=== PATIENT | female | born 1955 | race Asian ===

== ENCOUNTER → 2016-10-07 | Outpatient (CLI) | payer BC, OTHER ==
--- NOTE | 2016-10-12 17:31 | Diagnostic Imaging Report ---
Bilateral screening mammogram. The current study was also evaluated with a Computer Aided Detection (CAD) system. INDICATION: Screening. No current complaints stated on the questionnaire. COMPARISON: 09/08/15 FINDINGS: The breasts are composed of heterogeneously dense parenchyma which may decrease mammographic sensitivity. Occasional punctate calcifications are seen. Allowing for technique and positional differences, no suspicious change is seen. IMPRESSION: No significant change. ACR BI-RADS Category 2: Benign findings. Result letter will be mailed to the patient. Note: At least 10% of breast cancer is not imaged by mammography. Dictated by: Dictated on workstation # [id number]
== END ==
LOC: RAD 07:19
PROVIDERS: ATTEND Family Medicine
DX: Z12.31 Encounter for screening mammogram for malignant neoplasm of breast (principal)
CPT/HCPCS: 77067

== ENCOUNTER → 2017-10-25 | Outpatient (CLI) | payer BC ==
--- NOTE | 2017-10-25 10:15 | Diagnostic Imaging Report ---
Indication: Right breast calcification. Patient presents for additional views. Correlation is made with screening mammogram from 10/13/2017. 2-D and 3-D unilateral right diagnostic mammography was performed with conventional 90 degree lateral view as well as magnification MLO views. The calcification noted in the far posterior right breast on screening study are again noted and appear to be benign. These appear to be coarse. No associated soft tissue mass is seen. No pleomorphism or branching is identified. Impression: BI-RADS 2 Benign calcifications in the right breast. The patient may return to routine. ACR BI-RADS Category 2: Benign findings. Result letter will be mailed to the patient. Note: At least 10% of breast cancer is not imaged by mammography. Dictated by: Dictated on workstation # [id number]
== END ==
LOC: RAD 09:04
PROVIDERS: ATTEND Family Medicine
DX: R92.1 Mammographic calcification found on diagnostic imaging of breast (principal)

== ENCOUNTER → 2018-10-19 | Outpatient (CLI) | payer BC ==
--- NOTE | 2018-10-19 17:15 | Diagnostic Imaging Report ---
INDICATION: Routine screening. COMPARISON: Prior mammograms from 10/13/2017 and 10/07/2016. EXAMINATION: 2D and 3D bilateral screening mammography was performed with CAD. The current study was also evaluated with a Computer Aided Detection (CAD) system. FINDINGS: Scattered fibroglandular densities are identified, bilaterally. Previously noted calcifications in the right breast are stable. Density in the right breast at posterior depth, superiorly located, appears more prominent on today's study. This is best seen on the MLO view. This is likely laterally located on the CC view. Additional views are recommended. The left breast is unremarkable. No malignant appearing microcalcifications are seen. Axillae are unremarkable. IMPRESSION: Right breast density. Additional views are recommended for further evaluation. ACR BI-RADS Category 0: Incomplete. (Needs additional imaging evaluation). Result letter will be mailed to the patient. Note: At least 10% of breast cancer is not imaged by mammography. Dictated by: Dictated on workstation # [id number]
== END ==
LOC: RAD 07:09
PROVIDERS: ATTEND Nurse Practitioner Family
DX: Z12.31 Encounter for screening mammogram for malignant neoplasm of breast (principal); R92.2 Inconclusive mammogram
CPT/HCPCS: 77067

== ENCOUNTER → 2018-10-26 | Outpatient (CLI) | payer BC ==
--- NOTE | 2018-10-26 17:54 | Diagnostic Imaging Report ---
INDICATION: Right breast density. Patient presents for additional views. COMPARISON: Correlation is made with recent screening study from 10/19/2018. TECHNIQUE: Unilateral right 2D and 3D diagnostic mammography was performed including spot compression CC, MLO, as well as conventional and 90 degree lateral view. The current study was also evaluated with a Computer Aided Detection (CAD) system. FINDINGS: The area of density noted in the posterior upper right breast on MLO view appears to represent superimposed tissue. No underlying mass is identified with additional views. No suspicious calcifications are seen. IMPRESSION: Additional views fail to demonstrate a discrete mass. The patient may return to routine annual screening mammography. ACR BI-RADS Category 2: Benign findings. Result letter will be mailed to the patient. Note: At least 10% of breast cancer is not imaged by mammography. Dictated by: Dictated on workstation # [id number]
== END ==
LOC: RAD 13:07
PROVIDERS: ATTEND Nurse Practitioner Family
DX: R92.2 Inconclusive mammogram (principal)

== ENCOUNTER → 2019-11-01 | Outpatient (CLI) | payer BC ==
--- NOTE | 2019-11-01 09:35 | Diagnostic Imaging Report ---
Indication: Routine screening. Comparison is made with prior mammograms from 10/19/2018 and 10/13/2017. 2-D and 3-D bilateral screening mammography was performed with CAD. Scattered fibroglandular densities are identified bilaterally. The parenchymal pattern is stable. No dominant mass or malignant appearing microcalcifications are seen. Axillae are unremarkable. IMPRESSION: BI-RADS Category 1 No mammographic features suspicious for malignancy are identified. Dictated by: Dictated on workstation # [id number]
== END ==
LOC: RAD 06:56
PROVIDERS: ATTEND Nurse Practitioner Family
DX: Z12.31 Encounter for screening mammogram for malignant neoplasm of breast (principal)
CPT/HCPCS: 77063; 77067

== ENCOUNTER 2020-05-04 15:39 | Inpatient (IN) | payer BC ==
[~2020-05-04] VITALS: Ht 150 cm; Wt 50.0 kg
[2020-05-04] MEDS ORDERED: LACTATED RINGERS 1,000 ML IV ONE (16:34)
[2020-05-04 16:44] LABS: ABG BASE EXCESS -0.2 MMOL/L (-2.5-2.5); ABG OXYGEN SATURATION 93 % (94-100); ABG PCO2 34 MMHG (35-45); ABG PH 7.46 (7.37-7.43); ABG PO2 65 MMHG (79-93)
[2020-05-04] MEDS ORDERED: ASPIRIN 81 MG CHEW (CHILDREN'S ASA) PO ONE (16:45)
[2020-05-04] MEDS ORDERED: ACETAMINOPHEN 500 MG TAB (TYLENOL) PO ONE (16:45)
[2020-05-04 16:49] LABS: ALLENS TEST YES-POS; INSPIRED O2 RA; PATIENT TEMP 100.1; VENTILATOR NO
--- NOTE | 2020-05-04 16:58 | ED Respiratory ---
General Stated Complaint: COVID19+ Source: patient Exam Limitations: no limitations History of Present Illness Date Seen by Provider: May 04, 2020 Time Seen by Provider: 16:18 Initial Comments The patient presents to ER by private conveyance with chief complaint of a COVID symptoms for the past week and a positive COVID test. She's having some shortness of air cough that restless or getting worse since yesterday. She's having some baseline fever. No history of lung disease COPD asthma etc. No history of heart disease. She's having substernal chest pain worse on coughing or movement. The symptoms started on 20 April and she was tested positive on the , 2 weeks ago. Allergies and Home Medications Allergies Coded Allergies: No Known Drug Allergies (Unverified , 05/04/20) Home Medications Pravastatin Sodium 20 Mg Tablet, 20 MG PO DAILY, (Reported) Patient Home Medication List Home Medication List Reviewed: Yes Review of Systems Review of Systems Constitutional: No chills, No diaphoresis EENTM: No ear discharge, No ear pain Respiratory: cough, short of breath Cardiovascular: chest pain; No Hx of Intervention, No palpitations, No syncope, No vascular heart diseas Gastrointestinal: No abdominal pain, No constipation, No nausea, No vomiting Genitourinary: No discharge, No dysuria Musculoskeletal: No back pain, No gout, No joint pain Skin: No pruritus, No rash Psychiatric/Neurological: Denies Headache, Denies Numbness All Other Systems Reviewed Negative Unless Noted: Yes Past Xpxjlsk-Dasyie-Adgndg Hx Patient Social History Alcohol Use: Denies Use Recreational Drug Use: No Smoking Status: Never a Smoker Physical Exam Vital Signs - First Documented 05/04/20 16:25 Temp 38.4 Pulse 89 Resp 20 B/P (MAP) 134/69 (90) Pulse Ox 98 O2 Delivery Nasal Cannula O2 Flow Rate 2.00 Capillary Refill : Height: '" Weight: lbs. oz. kg; BMI Method: General Appearance: WD/WN, moderate distress Eyes: Bilateral Eye Normal Inspection, Bilateral Eye PERRL, Bilateral Eye EOMI HEENT: PERRL/EOMI, normal ENT inspection, TMs normal, pharynx normal Neck: non-tender, full range of motion, supple, normal inspection Respiratory: chest non-tender, lungs clear, normal breath sounds, respiratory distress (93-94% RA) Cardiovascular: normal peripheral pulses, regular rate, rhythm Gastrointestinal: normal bowel sounds, non tender, soft Extremities: normal range of motion, non-tender, normal inspection, normal capillary refill Neurologic/Psychiatric: no motor/sensory deficits, alert, oriented x 3, other (anxious affect) Skin: normal color, warm/dry Progress/Results/Core Measures Suspected Sepsis SIRS Temperature: Pulse: Respiratory Rate: Laboratory Tests 05/04/20 16:50: White Blood Count 12.0H Blood Pressure / Mean: Laboratory Tests 05/04/20 16:50: Creatinine 0.82, INR Comment 1.1, Platelet Count 195, Total Bilirubin 0.6 Results/Orders Lab Results Laboratory Tests Test 05/04/20 16:36 05/04/20 16:50 Range/Units Blood Gas Puncture Site RR Blood Gas Patient Temperature 100.1 Arterial Blood pH 7.46 H 7.37-7.43 Arterial Blood Partial Pressure CO2 34 L 35-45 MMHG Arterial Blood Partial Pressure O2 65 L 79-93 MMHG Arterial Blood HCO3 23 23-27 MMOL/L Arterial Blood Total CO2 24.0 21.0-31.0 MMOL/L Arterial Blood Oxygen Saturation 93 L 94-100 % Arterial Blood Base Excess -0.2 -2.5-2.5 MMOL/L Oscar Test YES-POS Blood Gas Ventilator Setting NO Blood Gas Inspired Oxygen RA White Blood Count 12.0 H 4.3-11.0 10^3/uL Red Blood Count 4.28 3.80-5.11 10^6/uL Hemoglobin 12.7 11.5-16.0 g/dL Hematocrit 39 35-52 % Mean Corpuscular Volume 90 80-99 fL Mean Corpuscular Hemoglobin 30 25-34 pg Mean Corpuscular Hemoglobin Concent 33 32-36 g/dL Red Cell Distribution Width 12.4 10.0-14.5 % Platelet Count 195 130-400 10^3/uL Mean Platelet Volume 9.3 9.0-12.2 fL Immature Granulocyte % (Auto) 1 % Neutrophils (%) (Auto) 85 H 42-75 % Lymphocytes (%) (Auto) 8 L 12-44 % Monocytes (%) (Auto) 6 0-12 % Eosinophils (%) (Auto) 0 0-10 % Basophils (%) (Auto) 0 0-10 % Neutrophils # (Auto) 10.2 H 1.8-7.8 10^3/uL Lymphocytes # (Auto) 0.9 L 1.0-4.0 10^3/uL Monocytes # (Auto) 0.7 0.0-1.0 10^3/uL Eosinophils # (Auto) 0.0 0.0-0.3 10^3/uL Basophils # (Auto) 0.0 0.0-0.1 10^3/uL Immature Granulocyte # (Auto) 0.1 0.0-0.1 10^3/uL Neutrophils % (Manual) 89 % Lymphocytes % (Manual) 3 % Monocytes % (Manual) 7 % Band Neutrophils 1 % Blood Morphology Comment NORMAL Prothrombin Time 14.1 12.2-14.7 SEC INR Comment 1.1 0.8-1.4 Activated Partial Thromboplast Time 33 24-35 SEC D-Dimer 0.32 0.00-0.49 UG/ML Sodium Level 139 135-145 MMOL/L Potassium Level 3.9 3.6-5.0 MMOL/L Chloride Level 103 98-107 MMOL/L Carbon Dioxide Level 24 21-32 MMOL/L Anion Gap 12 5-14 MMOL/L Blood Urea Nitrogen 15 7-18 MG/DL Creatinine 0.82 0.60-1.30 MG/DL Estimat Glomerular Filtration Rate > 60 BUN/Creatinine Ratio 18 Glucose Level 144 H 70-105 MG/DL Calcium Level 8.5 8.5-10.1 MG/DL Corrected Calcium 8.7 8.5-10.1 MG/DL Magnesium Level 1.9 1.6-2.4 MG/DL Total Bilirubin 0.6 0.1-1.0 MG/DL Aspartate Amino Transf (AST/SGOT) 38 H 5-34 U/L Alanine Aminotransferase (ALT/SGPT) 44 0-55 U/L Alkaline Phosphatase 87 40-136 U/L Myoglobin 62.4 10.0-92.0 NG/ML Troponin I < 0.028 <0.028 NG/ML C-Reactive Protein High Sensitivity 20.19 H 0.00-0.50 MG/DL B-Type Natriuretic Peptide 14.3 <100.0 PG/ML Total Protein 6.8 6.4-8.2 GM/DL Albumin 3.7 3.2-4.5 GM/DL Lipase 24 8-78 U/L Procalcitonin 0.10 H <0.10 NG/ML My Orders Orders - PEDRO FORD Arterial Blood Gas (05/04/20 16:34) Cbc With Automated Diff (05/04/20 16:34) Magnesium (05/04/20 16:34) Chest 1 View, Ap/Pa Only (05/04/20 16:34) Ekg Tracing (05/04/20 16:34) Comprehensive Metabolic Panel (05/04/20 16:34) Myoglobin Serum (05/04/20 16:34) Protime With Inr (05/04/20 16:34) Partial Thromboplastin Time (05/04/20 16:34) O2 (05/04/20 16:34) Monitor-Rhythm Ecg Trace Only (05/04/20 16:34) Lipid Panel (05/05/20 06:00) Ed Iv/Invasive Line Start (05/04/20 16:34) Lipase (05/04/20 16:34) BNP (05/04/20 16:34) Fibrin Degradation Products (05/04/20 16:34) Troponin I (05/04/20 16:34) Aspirin Chewable Tablet (Baby Aspirin Ch (05/04/20 16:45) Acetaminophen Tablet (Tylenol Tablet) (05/04/20 16:45) Ed Iv/Invasive Line Start (05/04/20 16:34) Lactated Ringers (Lr 1000 Ml Iv Solution (05/04/20 16:34) Manual Differential (05/04/20 16:50) Dexamethasone Injection (Decadron Injec (05/04/20 17:45) Hs C Reactive Protein (05/04/20 17:56) Procalcitonin (Pct) (05/04/20 17:56) Medications Given in ED Current Medications Medications Dose Ordered Sig/Cindy Route Start Time Stop Time Status Last Admin Dose Admin Acetaminophen 1,000 mg ONCE ONCE PO 05/04/20 16:45 05/04/20 16:46 DC 05/04/20 17:12 1,000 MG Aspirin 324 mg ONCE ONCE PO 05/04/20 16:45 05/04/20 16:46 DC 05/04/20 17:12 324 MG Dexamethasone Sodium Phosphate 6 mg ONCE ONCE IV 05/04/20 17:45 05/04/20 17:46 DC 05/04/20 17:50 6 MG Lactated Ringer's 1,000 ml @ 0 mls/hr Q0M ONCE IV 05/04/20 16:34 05/04/20 16:37 DC 05/04/20 17:12 1,000 MLS/HR Vital Signs/I&O 05/04/20 05/04/20 16:25 17:00 Temp 38.4 Pulse 89 Resp 20 B/P (MAP) 134/69 (90) Pulse Ox 98 98 O2 Delivery Nasal Cannula Nasal Cannula O2 Flow Rate 2.00 2.00 Capillary Refill : Progress Note : Time: 16:57 Progress Note Patient does have some mild respiratory distress, increased worker breathing, increased tachypnea and oxygen saturations barely staying at 94%. Plan to give her some aspirin and get a d-dimer as well as EKG, troponin, ABG and a radiograph of the chest. 1 L of lactated Ringer's. ECG Initial ECG Impression Date: May 04, 2020 Initial ECG Impression Time: 16:27 Initial ECG Rate: 123 Initial ECG Rhythm: S.Tach Initial ECG Intervals: Normal Initial ECG Impression: Normal Comment Sinus tachycardia without clinically relevant ST changes. Diagnostic Imaging Diagonstic Imaging: Xray Plain Films/CT/US/NM/MRI: chest Comments NAME: ALFREDO BULLOCK MED REC#: [id number] PT STATUS: REG ER : 1955 PHYSICIAN: PEDRO FORD MD ADMIT DATE: 05/04/20/ER Draft Date of Exam:05/04/20 CHEST 1 VIEW, AP/PA ONLY EXAMINATION: Chest 1 view HISTORY: Chest pain, Covid positive. COMPARISON: None. FINDINGS: Heart size and pulmonary vasculature are normal. There are bilateral mid and lower lung patchy interstitial and airspace opacities. No pleural effusion or pneumothorax. The osseous structures are intact. IMPRESSION: 1. Patchy interstitial and airspace opacities within the mid and lower lungs compatible with pneumonia and history of Covid. Dictated on workstation # [id number] Dict: 05/04/201725 Trans: 05/04/201727 [facility] [id number] Interpreted by: SREE ZAIDI DO Electronically signed by: Reviewed: Reviewed by Me, Discussed w/Radiologist Departure Communication (Admissions) Time/Spoke to Admitting y: 17:15 Discussed the case with Dr. Del Rosario and she agrees to admit the patient on oxygen, Decadron. Impression Primary Impression: COVID-19 Additional Impressions: Acute respiratory failure due to COVID-19 Acute respiratory failure with hypoxia Disposition: ADMITTED INPATIENT Condition: Stable Admissions Decision to Admit Reason: Admit from ER (General) Decision to Admit/Date: May 04, 2020 Time/Decision to Admit Time: 16:30 Departure-Patient Inst. Referrals: ANDRES MENDIETA MD (PCP/Family) Primary Care Physician PEDRO FORD May 04, 2020 16:58
[2020-05-04 17:10] LABS: BASOPHILS % (AUTO) 0 % (0-10); EOSINOPHILS % (AUTO) 0 % (0-10); HEMATOCRIT 39 % (35-52); HEMOGLOBIN 12.7 g/dL (11.5-16.0); LYMPHOCYTES # (AUTO) 0.9 10^3/uL (1.0-4.0); LYMPHOCYTES % (AUTO) 8 % (12-44); MEAN CORPUSCULAR HEMOGLOBIN 30 pg (25-34); MEAN CORPUSCULAR HGB CONC 33 g/dL (32-36); MEAN CORPUSCULAR VOLUME 90 fL (80-99); MEAN PLATELET VOLUME 9.3 fL (9.0-12.2); MONOCYTES # (AUTO) 0.7 10^3/uL (0.0-1.0); MONOCYTES % (AUTO) 6 % (0-12); NEUTROPHILS # (AUTO) 10.2 10^3/uL (1.8-7.8); NEUTROPHILS % (AUTO) 85 % (42-75); PLATELET COUNT 195 10^3/uL (130-400)
[2020-05-04 17:11] LABS: ALBUMIN 3.7 GM/DL (3.2-4.5)
[2020-05-04 17:12] LABS: CHLORIDE 103 MMOL/L (98-107); INR 1.1 (0.8-1.4); POTASSIUM 3.9 MMOL/L (3.6-5.0); PROTHROMBIN TIME PATIENT 14.1 SEC (12.2-14.7); SODIUM 139 MMOL/L (135-145)
[2020-05-04 17:13] LABS: CALCIUM 8.5 MG/DL (8.5-10.1)
[2020-05-04 17:14] LABS: GLUCOSE 144 MG/DL (70-105); TOTAL PROTEIN 6.8 GM/DL (6.4-8.2)
[2020-05-04 17:15] LABS: CARBON DIOXIDE 24 MMOL/L (21-32)
[2020-05-04 17:16] LABS: BILIRUBIN,TOTAL 0.6 MG/DL (0.1-1.0)
[2020-05-04 17:17] LABS: ALKALINE PHOSPHATASE 87 U/L (40-136)
[2020-05-04 17:18] LABS: CREATININE SERUM 0.82 MG/DL (0.60-1.30); GFR ESTIMATED > 60
[2020-05-04 17:19] LABS: BUN/CREATININE RATIO 18
[2020-05-04 17:21] LABS: ALANINE AMINOTRANSFERASE 44 U/L (0-55); MAGNESIUM 1.9 MG/DL (1.6-2.4)
[2020-05-04 17:22] LABS: LIPASE 24 U/L (8-78)
--- NOTE | 2020-05-04 17:29 | Diagnostic Imaging Report ---
EXAMINATION: Chest 1 view HISTORY: Chest pain, Covid positive. COMPARISON: None. FINDINGS: Heart size and pulmonary vasculature are normal. There are bilateral mid and lower lung patchy interstitial and airspace opacities. No pleural effusion or pneumothorax. The osseous structures are intact. IMPRESSION: 1. Patchy interstitial and airspace opacities within the mid and lower lungs compatible with pneumonia and history of Covid. Dictated by: Dictated on workstation # [id number]
[2020-05-04 17:49] LABS: BAND NEUTROPHILS 1 %; LYMPHOCYTES % (MANUAL) 3 %; MONOCYTES % (MANUAL) 7 %; NEUTROPHILS % (MANUAL) 89 %; RBC MORPH NORMAL
[2020-05-04] MEDS ORDERED: PRAV20TA3 PO (18:06)
--- NOTE | 2020-05-04 18:45 | NUR ---
Pt admitted to room 430 from ED. Pt is A/o x 4, able to make needs known. Pt was oriented to room. Call light within reach.
[2020-05-04 18:57] VITALS: BP 136/63
[2020-05-04] MEDS ORDERED: ONDANSETRON 4 MG/2 ML (SDV) Z0FRAN IV PRN (19:00)
[2020-05-04] MEDS ORDERED: ACETAMINOPHEN 325 MG TABLET PO PRN (19:00)
[2020-05-04] MEDS ORDERED: IBUPROFEN 600 MG (MOTRIN) TAB PO PRN (19:00)
[2020-05-04] MEDS: LACTATED RINGERS 1,000 ML IV SCH (19:13)
[2020-05-04] MEDS ORDERED: BENZONATATE 100 MG (TESSALON) CAPSULE PO PRN (19:15)
[2020-05-04] MEDS ORDERED: CATHETER FLUSH 10 ML SYR IV PRN (19:15)
[2020-05-04] MEDS ORDERED: FLU QUADRIvalent (3YOA+) 60 mcg/0.5 ml 2020-21 (AFLURIA) IM ONE (19:30)
[2020-05-04 19:50] VITALS: BP 136/63
[2020-05-04 20:54] VITALS: BP 134/69
[2020-05-04] MEDS ORDERED: RT-ALBUTEROL INHALER HFA (VENTOLIN HFA) 18 GM IH PRN (21:30)
[2020-05-04] MEDS: RT-ALBUTEROL INHALER HFA (VENTOLIN HFA) 18 GM IH SCH (21:34)
[2020-05-05] VITALS (9 sets, daily range): BP systolic 101–142; BP diastolic 50–80
[2020-05-05] MEDS: RT-ALBUTEROL INHALER HFA (VENTOLIN HFA) 18 GM IH SCH ×6 (02:45→20:04)
[2020-05-05 06:06] LABS: BASOPHILS % (AUTO) 0 % (0-10); EOSINOPHILS % (AUTO) 0 % (0-10); HEMATOCRIT 38 % (35-52); HEMOGLOBIN 12.3 g/dL (11.5-16.0); LYMPHOCYTES # (AUTO) 0.4 10^3/uL (1.0-4.0); LYMPHOCYTES % (AUTO) 8 % (12-44); MEAN CORPUSCULAR HEMOGLOBIN 30 pg (25-34); MEAN CORPUSCULAR HGB CONC 32 g/dL (32-36); MEAN CORPUSCULAR VOLUME 93 fL (80-99); MEAN PLATELET VOLUME 9.6 fL (9.0-12.2); MONOCYTES # (AUTO) 0.2 10^3/uL (0.0-1.0); MONOCYTES % (AUTO) 4 % (0-12); NEUTROPHILS # (AUTO) 4.7 10^3/uL (1.8-7.8); NEUTROPHILS % (AUTO) 87 % (42-75); PLATELET COUNT 196 10^3/uL (130-400); WHITE BLOOD COUNT 5.4 10^3/uL (4.3-11.0)
[2020-05-05 06:20] LABS: ALBUMIN 3.3 GM/DL (3.2-4.5); CHLORIDE 109 MMOL/L (98-107); POTASSIUM 4.2 MMOL/L (3.6-5.0); SODIUM 140 MMOL/L (135-145)
[2020-05-05 06:21] LABS: CALCIUM 8.5 MG/DL (8.5-10.1)
[2020-05-05 06:22] LABS: TRIGLYCERIDES 108 MG/DL (<150); VLDL CHOLESTEROL 22 MG/DL (5-40)
[2020-05-05 06:23] LABS: GLUCOSE 282 MG/DL (70-105); TOTAL PROTEIN 6.4 GM/DL (6.4-8.2)
[2020-05-05 06:24] LABS: CARBON DIOXIDE 21 MMOL/L (21-32)
[2020-05-05 06:25] LABS: BILIRUBIN,TOTAL 0.4 MG/DL (0.1-1.0)
[2020-05-05 06:26] LABS: ALKALINE PHOSPHATASE 88 U/L (40-136); CREATININE SERUM 0.76 MG/DL (0.60-1.30); GFR ESTIMATED > 60
[2020-05-05 06:27] LABS: CHOLESTEROL 202 MG/DL (< 200)
[2020-05-05 06:28] LABS: BUN/CREATININE RATIO 18
[2020-05-05 06:29] LABS: ALANINE AMINOTRANSFERASE 44 U/L (0-55); HDL CHOLESTEROL 46 MG/DL (40-60)
--- NOTE | 2020-05-05 08:40 | Diagnostic Imaging Report ---
INDICATION: Hypoxia. Time of exam: 4:22 AM Correlation is made with prior chest one day earlier. Patchy infiltrates mid and lower lung butterfield persist. There is no effusion or pneumothorax. The heart size is stable. IMPRESSION: Continued patchy bilateral pulmonary infiltrates. Dictated by: Dictated on workstation # [id number]
[2020-05-05] MEDS: LACTATED RINGERS 1,000 ML IV SCH ×2 (08:59→20:52)
[2020-05-05] MEDS: guaiFENesin/DM (ROBITUSSIN DM) 10 ML UDC PO PRN ×2 (11:00→17:00)
--- NOTE | 2020-05-05 11:48 | History & Physical-Hospitalist ---
History of Present Illness HPI/Chief Complaint Pt is a 64yoAAF with a PMH of HLD who presented to the ER due to persistent cough with known COVID19. She stated her symptoms started on 04/20 and she was diagnosed on 04/22. She did ok at home but lost her taste and continued to cough. She was taken out of isolation and returned to work yesterday but continued to cough severely so her boss instructed her to go to the ER for evaluation. She was found to be hypoxic on arrival and admitted for further management. This morning she states she feels better but still has an annoying cough. Source: patient Date Seen 05/05/20 Time Seen by a Provider: 11:46 Attending Physician Susanne Del Rosario MD PCP Marlene Mills MD Referring Physician Date of Admission May 04, 2020 at 18:00 Home Medications & Allergies Home Medications Reviewed patient Home Medication Reconciliation performed by pharmacy medication reconciliations sleep technician and/or nursing. Patients Allergies have been reviewed. Allergies Allergies Coded Allergies No Known Drug Allergies (Hsuakkdvrs02/30/20) Past Czoznwc-Twrjgu-Frzccb Hx Past Med/Social Hx: Reviewed Nursing Past Med/Soc Hx Patient Social History Marrital Status: Employed/Student: employed Alcohol Use: Denies Use Recreational Drug Use: No Smoking Status: Never a Smoker Recent Foreign Travel: No Contact w/other who traveled: No Recent Hopitalizations: No Recent Infectious Disease Expo: No Seasonal Allergies Seasonal Allergies: No Past Medical History Surgeries: Hysterectomy Female Reproductive Disorders: Endometriosis Genitourinary: Kidney Stones Family History Reviewed Nursing Family Hx Patient reports no known family medical history. No Pertinent Family Hx Review of Systems Constitutional: fever, malaise, weakness Respiratory: cough; No phlegm; short of breath Cardiovascular: No chest pain, No edema, No palpitations Gastrointestinal: No abdominal pain, No constipation, No diarrhea; loss of appetite Genitourinary: no symptoms reported Musculoskeletal: no symptoms reported Skin: no symptoms reported Psychiatric/Neurological: No Symptoms Reported Physical Exam Physical Exam Vital Signs Vital Signs - First Documented 05/04/20 05/04/20 16:25 20:54 Temp 38.4 Pulse 89 Resp 20 B/P (MAP) 134/69 (90) Pulse Ox 98 O2 Delivery Nasal Cannula O2 Flow Rate 2.00 FiO2 28 Capillary Refill : Less Than 3 Seconds Height, Weight, BMI Height: '" Weight: lbs. oz. kg; 22.22 BMI Method: General Appearance: No Apparent Distress, WD/WN, Thin HEENT: PERRL/EOMI, Moist Mucous Membranes Neck: Normal Inspection, Supple Respiratory: Lungs Clear, No Accessory Muscle Use, No Respiratory Distress, Other (coughing significantly during exam) Cardiovascular: Regular Rate, Rhythm, No Murmur Gastrointestinal: Normal Bowel Sounds, Non Tender, Soft Extremity: Normal Capillary Refill, No Calf Tenderness, No Pedal Edema Neurologic/Psychiatric: Alert, Oriented x3, Normal Mood/Affect Results Results/Procedures Labs Laboratory Tests 05/05/20 05:15 Patient resulted labs reviewed. Imaging: Reviewed Imaging Report Imaging [facility] [place] NAME: ALFREDO BULLOCK [facility] REC#: [id number] PT STATUS: ADM IN : 1955 PHYSICIAN: PEDRO FORD MD ADMIT DATE: 05/04/20 Signed Date of Exam:05/04/20 CHEST 1 VIEW, AP/PA ONLY EXAMINATION: Chest 1 view HISTORY: Chest pain, Covid positive. COMPARISON: None. FINDINGS: Heart size and pulmonary vasculature are normal. There are bilateral mid and lower lung patchy interstitial and airspace opacities. No pleural effusion or pneumothorax. The osseous structures are intact. IMPRESSION: 1. Patchy interstitial and airspace opacities within the mid and lower lungs compatible with pneumonia and history of Covid. Dictated by: Dictated on workstation # [id number] Dict: 05/04/201725 Trans: 05/04/201841 [facility] [id number] Interpreted by: SREE ZAIDI DO Electronically signed by: SREE ZAIDI DO 05/04/201841 Assessment/Plan Admission Diagnosis Acute hypoxic respiratory failure from COVID19 Admission Status: Inpatient Order (span 2 midnights) Reason for Inpatient Admission: see below Assessment and Plan Acute hypoxic respiratory failure from COVID19 Outside window for remdesivir Consent to convalescent plasma, EUA status explained to patient Contineu decadron Tessalon and robitussin for cough Lovenox MAT protocol DVt ppx:Lovenox Diagnosis/Problems Diagnosis/Problems (1) Acute respiratory failure due to COVID-19 Status: Acute (2) Acute respiratory failure with hypoxia Status: Acute Clinical Quality Measures DVT/VTE Risk/Contraindication: Risk Factor Score Per Nursin RFS Level Per Nursing on Admit: 3=High SUSANNE DEL ROSARIO MD May 05, 2020 11:48
[2020-05-05] MEDS: ENOXAPARIN 40 MG/0.4 ML (LOVENOX) SYR SQ SCH (13:34)
--- NOTE | 2020-05-05 14:34 | NUR ---
Initial visit: Pt is Faith. Local Bulk Driver engaged in rapport building and offered compassionate presence. Pt shared about her visit to the ER and stated she felt it comforting to share her story and know that Chaplains were available for support.
[2020-05-06] MEDS: RT-ALBUTEROL INHALER HFA (VENTOLIN HFA) 18 GM IH SCH ×5 (02:51→22:31)
[2020-05-06 04:24] VITALS: BP 109/60
[2020-05-06] MEDS: guaiFENesin/DM (ROBITUSSIN DM) 10 ML UDC PO PRN ×2 (04:40→20:29)
[2020-05-06 08:00] VITALS: BP 117/53
[2020-05-06] MEDS: LACTATED RINGERS 1,000 ML IV SCH (09:09)
[2020-05-06] MEDS ORDERED: OMEG100032 PO (09:43)
[2020-05-06] MEDS ORDERED: ASCO-262 PO (09:43)
[2020-05-06] MEDS ORDERED: ZINC50TA58 PO (09:43)
[2020-05-06] MEDS ORDERED: FLUT12AE6 INH (09:43)
[2020-05-06] MEDS ORDERED: CHOL500050 PO (09:43)
[2020-05-06] MEDS ORDERED: ASPI-1238 PO (09:43)
[2020-05-06] MEDS ORDERED: GLUC1TAB20 PO (09:43)
--- NOTE | 2020-05-06 09:49 | NUR ---
SPOKE WITH THE PT (CALLED HER CELL) AND WENT THRU THE EXT MED HISTORY TO COMPLETE THE MED REC PT RECENTLY FILLED A Z-CURT AND DEXAMETHASONE BUT SHE LET ME KNOW SHE WAS FINISHED WITH THOSE BOTH THERAPIES PRIOR TO BEING ADMITTED BREZTRI INHALER IS ON THE EXT MED HISTORY HOWEVER PT HAS NOT PICKED THIS UP FROM THE PHARMACY OTC MEDS: VIT D VIT C ZINC ASPIRIN 81MG FISH OIL GLUCOSAMINE CHONDROITIN
[2020-05-06] MEDS: ENOXAPARIN 40 MG/0.4 ML (LOVENOX) SYR SQ SCH (11:26)
[2020-05-06 12:00] VITALS: BP 132/63
--- NOTE | 2020-05-06 14:32 | Progress Note - Hospitalist ---
Subjective HPI/CC On Admission Date Seen by Provider: May 06, 2020 Time Seen by Provider: 14:30 Pt is a 64yoAAF with a PMH of HLD who presented to the ER due to persistent cough with known COVID19. She stated her symptoms started on 04/20 and she was diagnosed on 04/22. She did ok at home but lost her taste and continued to cough. She was taken out of isolation and returned to work yesterday but continued to cough severely so her boss instructed her to go to the ER for evaluation. She was found to be hypoxic on arrival and admitted for further management. This morning she states she feels better but still has an annoying cough. Subjective/Events-last exam Pt reports feeling better today. Cough slightly improved. Discussed likely prolonged course with cough. She inquired about receiving another dose of convalescent plasma but I informed her it is a one time treatment. Objective Exam Vital Signs Vital Signs Date Time Temp Pulse Resp B/P (MAP) Pulse Ox O2 Delivery O2 Flow Rate FiO2 05/06/20 12:00 35.8 67 18 132/63 (86) 95 Nasal Cannula 2.00 05/04/20 20:54 28 Capillary Refill : Less Than 3 Seconds General Appearance: No Apparent Distress, WD/WN Respiratory: Lungs Clear, No Respiratory Distress, Other (coughs with deep inspiration) Cardiovascular: Regular Rate, Rhythm, No Murmur Neurologic/Psychiatric: Alert, Oriented x3 Results/Procedures Lab Patient resulted labs reviewed. Assessment/Plan Assessment and Plan Assess & Plan/Chief Complaint Acute hypoxic respiratory failure from COVID19 Outside window for remdesivir S/p 1 unit convalescent plasma Continue decadron Tessalon and robitussin for cough Lovenox MAT protocol Hopeful to DC home tomorrow if she continues to do well, currently off oxygen DVt ppx:Lovenox Diagnosis/Problems Diagnosis/Problems (1) Acute respiratory failure due to COVID-19 Status: Acute (2) Acute respiratory failure with hypoxia Status: Acute Clinical Quality Measures DVT/VTE Risk/Contraindication: Risk Factor Score Per Nursin RFS Level Per Nursing on Admit: 3=High SUSANNE MORSE MD May 06, 2020 14:32
[2020-05-06 15:49] VITALS: BP 121/62
[2020-05-06 19:49] VITALS: BP 127/62
[2020-05-07 00:04] VITALS: BP 133/64
[2020-05-07] MEDS: LACTATED RINGERS 1,000 ML IV SCH (01:15)
[2020-05-07] MEDS: guaiFENesin/DM (ROBITUSSIN DM) 10 ML UDC PO PRN ×2 (06:00→13:31)
[2020-05-07 08:00] VITALS: BP 102/50
[2020-05-07] MEDS: RT-ALBUTEROL INHALER HFA (VENTOLIN HFA) 18 GM IH SCH ×3 (08:32→15:41)
--- NOTE | 2020-05-07 10:49 | NUR ---
pt did not require O2 for her walk study. Addendum: 05/07/20 at 1049 by SUPRIYA LOVE RT Amended: Links added.
--- NOTE | 2020-05-07 11:53 | Discharge Inst-Simple/Standard ---
Discharge Inst-Standard Patient Instructions/Follow Up Plan of Care/Instructions/FU: Please continue to take your medications as written. Please follow up with your primary care doctor to follow up this hospital stay. Activity as Tolerated: Yes Discharge Diet: No Restrictions Return to The Hospital For: Chest pain, fevers, shortness of breath, abdominal pain, confusion, if you feel you are getting worse. SUSANNE MORSE MD May 07, 2020 11:53
[2020-05-07] MEDS ORDERED: BENZ100C18 PO (11:56)
--- NOTE | 2020-05-07 11:57 | Discharge Summary ---
Diagnosis/Chief Complaint Date of Admission May 04, 2020 at 18:00 Date of Discharge Discharge Date: May 06, 2020 Admission Diagnosis Acute hypoxic respiratory failure from COVID19 Primary Care Marlene Mills MD Discharge Diagnosis (1) Acute respiratory failure due to COVID-19 Status: Acute (2) Acute respiratory failure with hypoxia Status: Acute Discharge Summary Discharge Physical Exam Allergies: Coded Allergies: No Known Drug Allergies (Unverified , 05/04/20) Vitals & I&Os Vital Signs Date Time Temp Pulse Resp B/P (MAP) Pulse Ox O2 Delivery O2 Flow Rate FiO2 05/07/20 10:45 83 90 05/07/20 10:44 Room Air 05/07/20 08:00 35.8 18 102/50 (67) 05/06/20 12:00 2.00 05/04/20 20:54 28 Hospital Course Labs (last 24 hrs) Patient resulted labs reviewed. Imaging: Reviewed Imaging Report Discharge Home Medications: Active Scripts Active Tessalon Perles (Benzonatate) 100 Mg Capsule 100 Mg PO TID PRN Reported Advair Hfa 230-21 Mcg Inhaler (Fluticasone/Salmeterol) 12 Gm Hfa.aer.ad 2 Puff INH Q12H Aspirin EC (Aspirin) 81 Mg Tablet.dr 81 Mg PO DAILY Zinc 50 Mg Tablet 50 Mg PO DAILY Vitamin C (Ascorbate Calcium) 500 Mg Tablet 500 Mg PO DAILY Fish Oil 1,000 mg Softgel ([place]-3/Dha/Epa/Fish Oil) 1,000 Mg Capsule 1,000 Mg PO DAILY Glucosamine Chondroitin Tab (Gluc Wynn/Chondro Wynn A/Vit C/Mn) 1 Each Tablet 1 Each PO DAILY Vitamin D3 (Cholecalciferol (Vitamin D3)) 125 Mcg Capsule 125 Mcg PO DAILY Pravastatin Sodium 20 Mg Tablet 20 Mg PO HS Instructions to patient/family Please see electronic discharge instructions given to patient. Clinical Quality Measures DVT/VTE Risk/Contraindication: Risk Factor Score Per Nursin RFS Level Per Nursing on Admit: 3=High SUSANNE MORSE MD May 07, 2020 11:57
[2020-05-07 12:00] VITALS: BP 126/61
[2020-05-07] MEDS: ENOXAPARIN 40 MG/0.4 ML (LOVENOX) SYR SQ SCH (13:31)
[2020-05-07 15:10] VITALS: BP 126/61
== END 2020-05-07 15:10 | disposition home or self-care (01) | DRG 177 ==
LOC: EDUNIT# 15:39 → ER 15:41 → 4TH 18:00 → EDLOC 18:00
PROVIDERS: ADMIT Family Medicine; ATTEND Family Medicine
PROC: XW13325 Transfusion of Convalescent Plasma (Nonautologous) into Peripheral Vein, Percutaneous Approach, New Technology Group 5 (ICD-10-PCS; principal; 2020-05-05)
DX: U07.1 COVID-19 (principal); J96.01 Acute respiratory failure with hypoxia; E78.5 Hyperlipidemia, unspecified; Z73.0 Burn-out; Z23 Encounter for immunization
CPT/HCPCS: 36415; 71045; 80053; 80061; 82805; 83690; 83735; 83874; 83880; 84145; 84484; 85007; 85025; 85027; 85379; 85610; 85730; 86141; 86850; 86900; 86901; 90686; 93005; 93041; 94640; 94760; 94761

== ENCOUNTER → 2020-06-16 | Outpatient (CLI) | payer BC ==
[~2020-06-16] MED LIST: ASCO-262 PO; ASPI-1238 PO; BENZ100C18 PO; CATHETER FLUSH 10 ML SYR IV PRN; CHOL500050 PO; FLUT12AE6 INH; GLUC1TAB20 PO; HOLD METFORMIN - RECEIVED CONTRAST 20 ML VIAL IV SCH; IOHEXOL 350 MG/ML 100 ML (OMNIPAQUE 350) VIAL IV ONE; NS 100 ML (IVPB) BAG IV ONE; OMEG100032 PO; PRAV20TA3 PO; ZINC50TA58 PO
[2020-06-16 12:51] LABS: BUN/CREATININE RATIO 16; GFR ESTIMATED > 60
--- NOTE | 2020-06-16 13:32 | Diagnostic Imaging Report ---
PROCEDURE: CT chest with contrast only. TECHNIQUE: Multiple contiguous axial images were obtained through the chest after administration of intravenous contrast. Auto Exposure Controls were utilized during the CT exam to meet ALARA standards for radiation dose reduction. INDICATION: Cough, dyspnea. COMPARISON: Radiographs dated 05/05/2020. FINDINGS: Small 0.5 cm and smaller bilateral thyroid nodules are present. No significant adenopathy within chest. Scattered vascular calcifications, including within the coronary arteries. No aneurysmal dilatation of thoracic aorta. The heart is within normal limits in size. No pericardial effusion. No pleural effusion. Patchy groundglass and subpleural reticular opacities are identified throughout the lungs. These are greatest within the lower lobes. These appear improved since the prior radiographs of the chest. The trachea is patent. No significant filling defect within the main pulmonary arteries. The visualized upper abdomen is unremarkable. No acute osseous abnormality. IMPRESSION: Improved though persistent bilateral groundglass and reticular pulmonary opacities, favored to relate to an improving infectious infiltrate. Recommend radiographic follow-up in 1-2 months to reevaluate. Dictated by: Dictated on workstation # [id number]
== END ==
LOC: RAD 12:12
PROVIDERS: ATTEND Family Medicine
DX: U07.1 COVID-19 (principal); R91.8 Other nonspecific abnormal finding of lung field
CPT/HCPCS: 36415; 71260; 82565; 84520

== ENCOUNTER → 2020-08-06 | Outpatient (CLI) | payer BC ==
[2020-08-06 14:25] LABS: ALBUMIN 4.6 GM/DL (3.2-4.5); CHLORIDE 108 MMOL/L (98-107); POTASSIUM 3.7 MMOL/L (3.6-5.0); SODIUM 143 MMOL/L (135-145)
[2020-08-06 14:26] LABS: CALCIUM 9.3 MG/DL (8.5-10.1)
[2020-08-06 14:27] LABS: GLUCOSE 105 MG/DL (70-105)
[2020-08-06 14:28] LABS: TOTAL PROTEIN 7.3 GM/DL (6.4-8.2)
[2020-08-06 14:29] LABS: BILIRUBIN,TOTAL 0.5 MG/DL (0.1-1.0); CARBON DIOXIDE 25 MMOL/L (21-32)
[2020-08-06 14:31] LABS: ALKALINE PHOSPHATASE 117 U/L (40-136); CREATININE SERUM 0.81 MG/DL (0.60-1.30); GFR ESTIMATED > 60
[2020-08-06 14:32] LABS: BUN/CREATININE RATIO 17
[2020-08-06 14:34] LABS: ALANINE AMINOTRANSFERASE 28 U/L (0-55)
--- NOTE | 2020-08-06 15:47 | Diagnostic Imaging Report ---
PROCEDURE: CT chest with contrast only. TECHNIQUE: Multiple contiguous axial images were obtained through the chest after administration of intravenous contrast. Auto Exposure Controls were utilized during the CT exam to meet ALARA standards for radiation dose reduction. INDICATION: Abnormal CT, pulmonary nodule COMPARISON: 06/16/2020 FINDINGS: Small bilateral subcentimeter hypodense thyroid nodules are present. No significant adenopathy within chest. Mild scattered vascular calcifications. No aneurysmal dilatation of the thoracic aorta. The heart is within normal limits in size. No pericardial effusion. No pleural effusion. No pneumothorax. Persistent bilateral reticular and groundglass opacities are again identified throughout the lungs bilaterally, particularly within the periphery of the lungs. These appear improved though not completely resolved since the prior examination. No new discrete pulmonary nodule or opacity. The trachea is patent. The partially visualized upper abdomen is unremarkable. No acute osseous abnormality with mild scattered osseous degenerative changes. IMPRESSION: Slightly improved though persisting bilateral reticular and groundglass opacities, predominantly within the periphery of the lungs. Findings are felt to relate to improving infectious or inflammatory process, COVID 19 could be considered. Given persistence for multiple months at this time, this may relate to developing fibrosis and chronic interstitial lung disease. Recommend continued radiographic followup in 3-6 months. Otherwise, similar examination. Dictated by: Dictated on workstation # [id number]
== END ==
LOC: RAD 13:50
PROVIDERS: ATTEND Family Medicine
DX: R91.8 Other nonspecific abnormal finding of lung field (principal); R93.89 Abnormal findings on diagnostic imaging of other specified body structures
CPT/HCPCS: 36415; 71260; 80053

== ENCOUNTER → 2020-11-25 | Outpatient (CLI) | payer BC ==
[~2020-11-25] MED LIST changes: -CATHETER FLUSH 10 ML SYR IV PRN; -HOLD METFORMIN - RECEIVED CONTRAST 20 ML VIAL IV SCH; -IOHEXOL 350 MG/ML 100 ML (OMNIPAQUE 350) VIAL IV ONE; -NS 100 ML (IVPB) BAG IV ONE
--- NOTE | 2020-11-25 13:47 | Diagnostic Imaging Report ---
INDICATION: Routine screening. COMPARISON: 11/01/2019 and 10/19/2018. TECHNIQUE: 2D and 3D bilateral screening mammography was performed with CAD. FINDINGS: Scattered fibroglandular densities are identified bilaterally. The parenchymal pattern is stable. No mass or malignant appearing microcalcifications are seen. There are benign calcifications present. The axillae are unremarkable. IMPRESSION: No mammographic features suspicious for malignancy are identified. ACR BI-RADS Category 2: Benign findings. Result letter will be mailed to the patient. Note: At least 10% of breast cancer is not imaged by mammography. Dictated by: Dictated on workstation # [id number]
== END ==
LOC: RAD 08:00
PROVIDERS: ATTEND Family Medicine
DX: Z12.31 Encounter for screening mammogram for malignant neoplasm of breast (principal)
CPT/HCPCS: 77063; 77067

== ENCOUNTER → 2020-12-15 | Outpatient (CLI) | payer BC ==
[~2020-12-15] MED LIST changes: +CATHETER FLUSH 10 ML SYR IV PRN; +HOLD METFORMIN - RECEIVED CONTRAST 20 ML VIAL IV SCH; +IOHEXOL 350 MG/ML 100 ML (OMNIPAQUE 350) VIAL IV ONE; +NS 100 ML (IVPB) BAG IV ONE
--- NOTE | 2020-12-15 09:36 | Diagnostic Imaging Report ---
PROCEDURE: CT chest with contrast only. TECHNIQUE: Multiple contiguous axial images were obtained through the chest after administration of intravenous contrast. Auto Exposure Controls were utilized during the CT exam to meet ALARA standards for radiation dose reduction. INDICATION: Abnormal chest CT in patient with previous Covid infection. COMPARISON: 08/06/2020 FINDINGS: There has been further improvement and near resolution of the predominantly peripheral interstitial lung disease noted on the previous study. There is no evidence of consolidation or noncalcified mass. No significant pleural or pericardial fluid is identified. Coronary artery calcifications are noted. There is no evidence of pathologically enlarged adenopathy in the thorax. Heterogeneous appearance of thyroid parenchyma is also stable. IMPRESSION: Minimal residual peripheral interstitial markings in both lungs likely represents residual fibrosis. No new infiltrate, mass or adenopathy is identified. Note is made of coronary artery calcification and continued heterogeneous appearance of thyroid gland parenchyma. Dictated by: Dictated on workstation # [id number]
== END ==
LOC: RAD 09:15
PROVIDERS: ATTEND Nurse Practitioner Family
DX: I25.10 Atherosclerotic heart disease of native coronary artery without angina pectoris (principal); E07.89 Other specified disorders of thyroid; Z86.16 Personal history of COVID-19
CPT/HCPCS: 71260

== ENCOUNTER → 2021-08-11 | Outpatient (CLI) | payer BC ==
[~2021-08-11] MED LIST changes: -CATHETER FLUSH 10 ML SYR IV PRN; -HOLD METFORMIN - RECEIVED CONTRAST 20 ML VIAL IV SCH; -IOHEXOL 350 MG/ML 100 ML (OMNIPAQUE 350) VIAL IV ONE; -NS 100 ML (IVPB) BAG IV ONE
--- NOTE | 2021-08-11 15:20 | Diagnostic Imaging Report ---
EXAMINATION: Left knee radiographs, 3 views. COMPARISON: None. HISTORY: 65-year-old female, left knee pain. FINDINGS: There is degenerative type enthesopathy of the distal quadriceps tendon insertion. There is no knee joint effusion. There is no identified acute fracture. The joint spaces are well preserved. IMPRESSION: Grossly unremarkable radiographs of the left knee. Dictated by: Dictated on workstation # [id number]
== END ==
LOC: RAD 13:50
PROVIDERS: ATTEND Nurse Practitioner
DX: M25.562 Pain in left knee (principal)
CPT/HCPCS: 73562

== ENCOUNTER → 2021-11-26 | Outpatient (CLI) | payer BC ==
--- NOTE | 2021-11-26 09:44 | Diagnostic Imaging Report ---
INDICATION: Routine screening. Comparison is made with prior mammogram 11/25/2020 and 11/01/2019. 2-D and 3-D bilateral screening mammography was performed with CAD. Scattered fibroglandular densities are identified bilaterally. The parenchymal pattern is stable. No mass or malignant-appearing microcalcifications are seen. There are benign calcifications present. Axillae are unremarkable. IMPRESSION: No mammographic features suspicious for malignancy are identified. ACR BI-RADS Category 2: Benign findings. Result letter will be mailed to the patient. Note: At least 10% of breast cancer is not imaged by mammography. BI-RADS Category 2 Dictated by: Dictated on workstation # [id number]
== END ==
LOC: RAD 07:28
PROVIDERS: ATTEND Nurse Practitioner Family
DX: Z12.31 Encounter for screening mammogram for malignant neoplasm of breast (principal)
CPT/HCPCS: 77063; 77067

== ENCOUNTER → 2022-02-08 | Outpatient (CLI) | payer BC, MEDICARE ==
[~2022-02-08] MED LIST changes: -GLUC1TAB20 PO; +GLUC1TAB21 PO
--- NOTE | 2022-02-08 14:10 | Diagnostic Imaging Report ---
INDICATION: Postmenopausal state COMPARISON: None available FINDINGS: AP Spine L1-L4: [BMD (g/cm2): 0.832] [T-Score: -3.1] [Z-Score: -1.1] [BMD Previous: na] [BMD % Change: na] LT Hip Neck: [BMD (g/cm2): 0.676] [T-Score: -2.6] [Z-Score: -0.9] LT Hip Total: [BMD (g/cm2):0.830] [T-Score:-1.4] [Z-Score: 0.1] [BMD Previous: na] [BMD % Change: na] RT Hip Neck: [BMD (g/cm2):0.658] [T-Score:-2.5] [Z-Score:-0.8] RT Hip Total: [BMD (g/cm2):0.832] [T-score:-1.4] [Z-Score:0.1] [BMD Previous:na] [BMD % Change:na] *Indicates significant change from prior examination based on 95% confidence level. World Health Organization criteria for BMD interpretation classify patients as Normal (T-score at or above -1.0), Osteopenic (T-score between -1.0 and -2.5) or Osteoporotic (T-score at or below -2.5). LIMITATIONS AND MODIFICATION: None. FRACTURE RISK (FRAX SCORE): The ten year probability of (%): Major Osteoporotic Fracture: [13.8] Hip Fracture: [3.2] IMPRESSION: 1. Osteoporosis. 2. Baseline examination. 3. See below National Osteoporosis Foundation guidelines on when to potentially initiate pharmacologic therapy. Based on the National Osteoporosis Foundation Guidelines, pharmacologic treatment should be initiated in any of the following, unless clinical conditions suggest otherwise: * Any patient with prior fragility fracture of the hip or vertebrae. A spine fracture indicates 5X risk for subsequent spine fracture and 2X risk for subsequent hip fracture. * Osteoporosis (T-score <-2.5). * Postmenopausal women and men age 50 and older with low bone mass/osteopenia (T-score between -1.0 and -2.5) by DXA and 10-year major osteoporotic fracture greater than 20% or a 10-year probability of hip fracture greater than 3%. These fracture risks are supplied above in the FRAX score, if applicable. * Clinician judgement and/or patient preferences may indicate treatment for people with 10-year fracture probabilities above or below these levels. Dictated by: Dictated on workstation # [id number]
== END ==
LOC: RAD 10:13
PROVIDERS: ATTEND Family Medicine
DX: M81.0 Age-related osteoporosis without current pathological fracture (principal); Z78.0 Asymptomatic menopausal state
CPT/HCPCS: 77080

== ENCOUNTER → 2022-02-15 | Outpatient (CLI) | payer MEDICARE, OTHER ==
--- NOTE | 2022-02-15 16:22 | Diagnostic Imaging Report ---
HISTORY: Right knee pain COMPARISON: None TECHNIQUE: 3 views of the right knee FINDINGS: No acute fracture or dislocation is seen in the right knee. Alignment is normal. Joint spaces are preserved. There is a small right knee joint effusion. IMPRESSION: 1. No acute osseous abnormality is seen in the right knee. There is a small right knee joint effusion. Dictated by: Dictated on workstation # [id number]
== END ==
LOC: RAD 10:04
PROVIDERS: ATTEND Family Medicine
DX: M25.561 Pain in right knee (principal); M25.461 Effusion, right knee
CPT/HCPCS: 73562

== ENCOUNTER 2022-02-23 05:37 | Outpatient (CLI) | payer MEDICARE, OTHER ==
[~2022-02-23] VITALS: Ht 162.6 cm; Wt 54.7 kg
== END 2022-02-23 10:26 ==
LOC: PREOP 05:37
PROVIDERS: ATTEND Surgery
DX: Z01.818 Encounter for other preprocedural examination (principal)

== ENCOUNTER 2022-03-11 10:04 | Day surgery (SDC) | payer MEDICARE, OTHER ==
[~2022-03-11] VITALS: Ht 162 cm; Wt 54.7 kg
[2022-03-11] MEDS ORDERED: LACTATED RINGERS 1,000 ML IV STA (10:10)
[2022-03-11] MEDS ORDERED: LIDOCAINE JELLY 2% 6 ML SYRINGE MM PRN (10:15)
[2022-03-11 10:23] VITALS: BP 122/77
--- NOTE | 2022-03-11 10:23 | Progress Note-Pre Operative ---
Pre-Operative Progress Note Date of Available H&P: Mar 11, 2022 Date H&P Reviewed: Mar 11, 2022 Time H&P Reviewed: 10:15 History & Physical: No changes noted Pre-Operative Diagnosis: screening o RAIZA GUILLERMO MD Mar 11, 2022 10:23
--- NOTE | 2022-03-11 10:25 | Discharge Inst-Surgical ---
D/C Lap Instructions-MIMA Follow Up Activity as tolerated High Fiber Diet 25g or more per day Avoid Alcohol, Caffeine, Spicy [place] and Acid foods. Drink 64 fluid oz or more of fluids per day. Symptoms to Report: Fever over 101 degree F, Nausea/Vomiting If any problems/questions: Contact your physician or go to Emergency Room RAIZA GUILLERMO MD Mar 11, 2022 10:25
[2022-03-11] MEDS ORDERED: ONDANSETRON 4 MG/2 ML (SDV) Z0FRAN IVP PRN (10:30)
[2022-03-11] MEDS ORDERED: ONDANSETRON 4 MG (ZOFRAN) ORAL DISSOLVE TAB PO PRN (10:30)
[2022-03-11] MEDS ORDERED: MIDAZOLAM 2 MG/2 ML (VERSED) VIAL ONE (10:31)
[2022-03-11] MEDS ORDERED: PROPOFOL INJECTION 50 ML IV ONE (10:31)
[2022-03-11 10:55] VITALS: BP 99/57
[2022-03-11 11:00] VITALS: BP 89/51
[2022-03-11 11:05] VITALS: BP 92/52
--- NOTE | 2022-03-11 11:40 | Anesthesia-General Post-Op ---
MAC Patient Condition Mental Status/LOC: Same as Preop Cardiovascular: Satisfactory Nausea/Vomiting: Absent Respiratory: Satisfactory Pain: Controlled Complications: Absent Post Op Complications Complications None Follow Up Care/Instructions Patient Instructions None needed. Anesthesiology Discharge Order Discharge Order Patient is doing well, no complaints, stable vital signs, no apparent adverse anesthesia problems. No complications reported per nursing. TIKA ALEXANDRA CRNA Mar 11, 2022 11:40
[2022-03-11 11:45] VITALS: BP 134/69
--- NOTE | 2022-03-11 11:53 | Progress Note-Post Operative ---
Post-Operative Progess Note Surgeon (s)/Income Tax Investigator (s) Surgeon RAIZA GUILLERMO MD Income Tax Investigator: none Pre-Operative Diagnosis screening colo Post-Operative Diagnosis normal colon and rectum Procedure & Operative Findings Date of Procedure 03/11/22 Procedure Performed/Findings colonoscopy Anesthesia Type mac Estimated Blood Loss Estimated blood loss (mL): minimal Specimens/Packing Specimens Removed none ARIZA GUILLERMO MD Mar 11, 2022 11:53
--- NOTE | 2022-03-11 14:23 | OPERATIVE REPORT ---
DATE OF SERVICE: 03/11/2022 ATTENDING PRIMARY CARE PHYSICIAN: Dr. Neeraj Kraft. PREOPERATIVE DIAGNOSIS: Screening colonoscopy. POSTOPERATIVE DIAGNOSIS: Normal rectum and colon. PROCEDURE: Colonoscopy. SURGEON: Raiza Guillermo MD. ANESTHESIA: Monitored anesthesia care. ESTIMATED BLOOD LOSS: Minimal. FINDINGS: Normal rectum and colon. DISPOSITION: The patient tolerated the procedure well. INDICATIONS: The patient is a 66-year-old female in need of a screening colonoscopy. Her last colonoscopy was approximately 10 years ago, which was normal. She states she is otherwise doing well, does not report any major issues with diarrhea nor constipation as well as no red blood per rectum nor any dark tarry stools. She also does not report any family history of colon cancer. DESCRIPTION OF PROCEDURE: The patient was brought to the endoscopy suite, laid in the left lateral decubitus position. After adequate IV pain and sedative medications and monitored anesthesia care, a digital rectal examination was performed. No significant hemorrhoids identified. Normal sphincter tone was felt and there were no palpable masses. The endoscope was then intubated into the anus and rectum gently insufflated. The endoscope was then advanced through the valves of Dickinson of the rectum with no polyps or any neoplasms identified. We then proceeded through the sigmoid colon where no diverticulosis identified. The endoscope was then advanced through the remainder of the descending, transverse and ascending colon to the cecum, which were normal. There were no polyps or any neoplasms identified throughout the colon or rectum. The endoscope was then slowly withdrawn while taking a second look and suctioning of residual air with no additional findings. The patient tolerated the procedure well. We will recommend the necessary lifestyle and dietary accommodation including continued high fiber diet with fiber supplementation, which should equal or exceed 25 grams daily as well as significant amounts of water to promote soft stools on a daily basis. If she is asymptomatic, she does not need another colonoscopy for another 10 years. Job ID: [id number] DocumentID: [id number] Dictated Date: 03/11/2022 10:57:56 Hand Endband Cutter Date: 03/11/2022 14:22:25 Dictated By: RAIZA GUILLERMO MD
== END 2022-03-11 12:05 | disposition home or self-care (01) ==
LOC: ENDO 10:04
PROVIDERS: ATTEND Surgery
DX: Z12.11 Encounter for screening for malignant neoplasm of colon (principal); C56.9 Malignant neoplasm of unspecified ovary

== ENCOUNTER → 2022-04-01 | Outpatient (CLI) | payer MEDICARE, OTHER ==
[2022-04-01 10:35] LABS: BASOPHILS % (AUTO) 1 % (0-10); EOSINOPHILS # (AUTO) 0.1 10^3/uL (0.0-0.3); EOSINOPHILS % (AUTO) 2 % (0-10); HEMATOCRIT 44 % (35-52); HEMOGLOBIN 14.4 g/dL (11.5-16.0); LYMPHOCYTES # (AUTO) 2.2 10^3/uL (1.0-4.0); LYMPHOCYTES % (AUTO) 35 % (12-44); MEAN CORPUSCULAR HEMOGLOBIN 30 pg (25-34); MEAN CORPUSCULAR HGB CONC 33 g/dL (32-36); MEAN CORPUSCULAR VOLUME 90 fL (80-99); MEAN PLATELET VOLUME 9.4 fL (9.0-12.2); MONOCYTES # (AUTO) 0.5 10^3/uL (0.0-1.0); MONOCYTES % (AUTO) 8 % (0-12); NEUTROPHILS # (AUTO) 3.5 10^3/uL (1.8-7.8); NEUTROPHILS % (AUTO) 54 % (42-75); PLATELET COUNT 217 10^3/uL (130-400); WHITE BLOOD COUNT 6.5 10^3/uL (4.3-11.0)
--- NOTE | 2022-04-01 15:23 | Diagnostic Imaging Report ---
INDICATION: Swelling, pain COMPARISON: None available. TECHNIQUE: 3 radiographs of the right hand dated 04/01/2022. FINDINGS: No acute fracture or dislocation. No destructive osseous process. Mild scattered degenerative changes, including mild scattered joint space narrowing involving interphalangeal joints. No suspicious radiopaque foreign body. Carpal alignment is well maintained. IMPRESSION: No acute osseous abnormality with mild degenerative changes present. Dictated by: Dictated on workstation # [id number]
== END ==
LOC: RAD 10:19
PROVIDERS: ATTEND Nurse Practitioner Family
DX: M19.041 Primary osteoarthritis, right hand (principal)
CPT/HCPCS: 36415; 73140; 84550; 85025; 86038; 86060; 86431

== ENCOUNTER → 2022-12-02 | Outpatient (CLI) | payer MEDICARE, OTHER ==
--- NOTE | 2022-12-02 12:06 | Diagnostic Imaging Report ---
INDICATION: Routine screening. Comparison is made with prior mammogram from 11/26/2021 and 11/25/2020. 2-D and 3-D bilateral screening mammography was performed with CAD. Scattered fibroglandular densities are identified bilaterally. The overall parenchymal pattern is stable. No mass or malignant-appearing microcalcifications are seen. There are benign calcifications of the right breast. Axillae are unremarkable. IMPRESSION: No mammographic features suspicious for malignancy are identified. ACR BI-RADS Category 2: Benign findings. Result letter will be mailed to the patient. Note: At least 10% of breast cancer is not imaged by mammography. BI-RADS Category 2 Dictated by: Dictated on workstation # [id number]
== END ==
LOC: RAD 07:30
PROVIDERS: ATTEND Family Medicine
DX: Z12.31 Encounter for screening mammogram for malignant neoplasm of breast (principal)
CPT/HCPCS: 77063; 77067